=== PATIENT | male | born 1985 | race Caucasian/White ===

== ENCOUNTER 2017-02-21 11:35 | Emergency (ER) | payer MEDICAID ==
[~2017-02-21] VITALS: Ht 175.3 cm; Wt 86.0 kg
[2017-02-21 11:47] VITALS: Ht 175.3 cm; Wt 86.0 kg
--- NOTE | 2017-02-21 13:03 | RADRPT ---
PROCEDURE: Chest Radiograph. CLINICAL INDICATION: Chest pain TECHNIQUE: Single frontal chest radiograph. COMPARISON: None available FINDINGS: The cardiomediastinal silhouette is within normal limits. No infiltrate or effusion is seen. Th e bones are intact. IMPRESSION: 1. No evidence of acute cardiopulmonary disease. RPTAT: KK .Corby Flores MD, MD Date Time Electronically viewed and signed by .Corby Flores MD, on 02/21/2017 13:03 .B/
[2017-02-21] MEDS ORDERED: IBUP-1542 PO (13:10)
--- NOTE | 2017-02-21 13:43 | ERD ---
ER Documentation Chief Complaint Date/Time DATE: 02/21/17 TIME: 13:41 Chief Complaint Complains of chest pain HPI This is a 32-year-old male presents to the ER with chest pain over the last 6 months. Patient states that chest pain is intermittent and described as a shocking pain located on the left side of his chest. Pain is nonradiating. Patient denies any shortness of breath. Pain is nonexertional. He denies any nausea or vomiting or diarrhea. He does not have any cough or cold symptoms. Patient does not have any family history of early onset cardiac problems. He does have a history of anxiety. She denies any recent travel he denies any leg pain, redness, swelling. ROS 12 point review of systems was done, all negative except per HPI. Medications Home Meds Active Scripts Ibuprofen* (Motrin*) 600 Mg Tab, 600 MG PO Q6, #30 TAB Prov:HOWIE TIMMONS 02/21/17 Allergies Allergies: Coded Allergies: No Known Allergy (Unverified , 02/21/17) PMhx/Soc Medical and Surgical Hx: pt denies Medical Hx, pt denies Surgical Hx Hx Alcohol Use: Yes Hx Substance Use: No Hx Tobacco Use: No Smoking Status: Never smoker Physical Exam Vitals Vital Signs Date Time Temp Pulse Resp B/P Pulse Ox O2 Delivery O2 Flow Rate FiO2 02/21/17 11:47 98.3 67 20 116/70 98 Physical Exam GENERAL: The patient is well developed and appropriate for usual state of health , in no apparent distress. HEENT: Atraumatic. Conjunctivae are pink. Pupils equal, round, and reactive to light. Extraocular muscles are grossly intact. Bilateral tympanic membranes are clear with no evidence of erythema, effusion or dulling of the light reflex. The oropharynx is clear with no erythema or exudates. NECK: C-spine is soft and supple. There is no cervical lymphadenopathy. CHEST: Clear to auscultation bilaterally. There are no rales, wheezes or rhonchi. HEART: Regular rate and rhythm. No murmurs, clicks, rubs or gallops. ABDOMEN: Soft, nontender and nondistended. Good bowel sounds. No rebound or guarding. No gross peritonitis. No gross organomegaly or masses. No Chi sign or McBurney point tenderness. No pulsatile masses. BACK: No midline or flank tenderness. EXTREMITIES: Equal pulses bilaterally. There is no peripheral clubbing, cyanosis or edema. No focal swelling or erythema. Full range of motion. Grossly neurovascularly intact. NEURO: Alert and oriented. Cranial nerves II through XII are intact. Motor strength in all 4 extremities with 5/5 strength. Sensation grossly intact. Normal speech and gait. SKIN: There is no apparent rash or petechia. The skin is warm and dry. Procedures/MDM EKG was done and read by Dr. Greco [address] elevation no T-wave inversion. Differential diagnosis includes but is not limited to; STEMI, dissection, pneumothorax, PE, esophageal rupture, tamponade, pneumonia, pericarditis, GERD, musculoskeletal, endocarditis, anxiety. Etiology of chest pain at this time is unknown, however suspicion for acute cardiac etiology is low. Suspicion for pulmonary embolism is low, patient does not have any PERC criteria. Patient is afebrile and well-appearing I doubt endocarditis. Patient will be sent home with ibuprofen. Needs to follow-up with his primary care doctor within 1-2 days or return to ER sooner if symptoms worsen. My medical decision making was shared with the patient he understands and agrees with plan. Departure Diagnosis: Primary Impression: Chest pain Condition: Stable Patient Instructions: Chest Pain, Uncertain Cause Additional Instructions: Llame al doctor CORBYANA y britney nikkie ARNOL PARA DENTRO DE 1-2 RIDLEY.Dgale a la secretaria que nosotros le instruimos hacer esta arnol.Avise o llame si cobos condicin se empeora antes de la arnol. Regresa aqui si peor o no mejor. HOWIE TIMMONS Feb 21, 2017 13:43
== END 2017-02-21 13:16 | disposition home or self-care (01) ==
LOC: FTE 11:35
DX: R07.9 Chest pain, unspecified (principal)
CPT/HCPCS: 71010